=== PATIENT | female | born 2000 | race Caucasian/White ===

== ENCOUNTER 2020-09-26 13:56 | Outpatient (CLI) | payer OTHER ==
[~2020-09-26 13:56] MED LIST: Birth control pill; GADOTERATE 2.5 MMOL/5 ML VIAL ONE; OMNIPAQUE 300 MG/ML, 10ML VIAL ONE; OXYC-302 PO
[2020-09-26] MEDS ORDERED: TRIAMCINOLONE ACETONIDE 40 MG/ML, 1ML ONE (14:06)
[2020-09-26] MEDS ORDERED: LIDOCAINE-MPF 1%, 5ML ONE (14:07)
[2020-09-26] MEDS ORDERED: ROPivacaine/PF 0.2%, 10 ML ONE (14:07)
== END 2020-09-26 23:59 | disposition home or self-care (01) ==
LOC: RAD 13:56
PROVIDERS: ATTEND Orthopaedic Surgery
DX: M25.551 Pain in right hip (principal)
CPT/HCPCS: 27093; 73525; 73722; A9575; J2795; J3301; Q9967